=== PATIENT | female | born 1955 | race Caucasian/White ===

== ENCOUNTER 2025-02-10 14:28 | Inpatient (IN) | payer MEDICARE ==
[~2025-02-10] VITALS: Ht 157.5 cm; Wt 59.0 kg
[2025-02-10 15:30] LABS: PLATELET COUNT (AUTO) 305 K/uL (150-450); RED BLOOD CELL COUNT(AUTO) 3.11 MIL/uL (4.0-5.2); RED CELL DISTRIBUTION WIDTH 13.9 % (11.5-15.0); WHITE BLOOD COUNT (AUTO) 7.3 K/uL (4.3-11.0)
[2025-02-10 15:32] LABS: APPEARANCE,URINE CLEAR (CLEAR); BLOOD, URINE 2+ Ery/uL (NEGATIVE); LEUKOCYTE ESTERASE ,URINE 1+ (NEGATIVE); NITRITE, URINE NEGATIVE (NEGATIVE); UGLUCOSE NEGATIVE (NEGATIVE)
[2025-02-10 15:37] LABS: CALCIUM, SERUM 9.3 mg/dL (8.5-10.1); CREATININE 2.3 mg/dL (0.6-1.3); SODIUM SERUM 130 mmol/L (136-145); UREA NITROGEN, BLOOD 23 mg/dL (7-18)
[2025-02-10] MEDS ORDERED: ONDANSETRON HCL/PF 4 MG/2 ML VIAL ONE (15:37)
[2025-02-10] MEDS ORDERED: MORPHINE SULFATE INJ 2 MG/ML DISP.SYRIN ONE (15:37)
[2025-02-10 15:43] LABS: ASPARTATE AMINOTRANSFERASE 11 U/L (15-37); TOTAL PROTEIN, SERUM 7.1 g/dL (6.4-8.2)
[2025-02-10] MEDS: ONDANSETRON HCL/PF - ER 4 MG/2 ML VIAL IV ONE (15:45)
[2025-02-10] MEDS: MORPHINE SULFATE INJ 2 MG/ML DISP.SYRIN IV ONE (15:45)
[2025-02-10 16:00] LABS: ADD URINE CULTURE YES; SQUAMOUS EPITHELIAL CELL,UR 0-2 /HPF (None Seen)
[2025-02-10 16:14] LABS: OCCULT BLOOD STOOL NEGATIVE (NEGATIVE)
[2025-02-10] MEDS ORDERED: CEFTRIAXONE 1GM BAG (ER ONLY) 50 ML IV ONE (16:47)
[2025-02-10] MEDS: IV NS 0.9% 1,000 ML BAG IV ONE (16:56)
[2025-02-10] MEDS: CEFTRIAXONE 1 G in IV D5W 50 ML IV ONE (16:57)
[2025-02-10] MEDS ORDERED: QUET50TA PO (18:49)
[2025-02-10] MEDS ORDERED: MEMA10TA56 PO (18:49)
[2025-02-10] MEDS ORDERED: ACET325T53 PO (18:49)
[2025-02-10] MEDS ORDERED: SIME80TA15 PO (18:49)
[2025-02-10] MEDS ORDERED: DONE10TA44 PO (18:49)
[2025-02-10] MEDS ORDERED: QUET25TA PO (18:49)
[2025-02-10] MEDS ORDERED: CLON0.5T4 PO (18:49)
[2025-02-10] MEDS ORDERED: NALT50TA PO (18:49)
[2025-02-10] MEDS ORDERED: [UNRECOGNIZED DRUG - OTHER] PO (18:49)
[2025-02-10] MEDS ORDERED: SERT100T12 PO (18:49)
[2025-02-10] MEDS ORDERED: MIRT-90 PO (18:49)
[2025-02-10] MEDS ORDERED: LOSA100T31 PO (18:49)
[2025-02-10] MEDS ORDERED: ROSU5TAB PO (18:49)
[2025-02-10] MEDS ORDERED: MAG355OR35 PO (18:49)
[2025-02-10] MEDS ORDERED: GUAI5LIQ10 PO (18:49)
[2025-02-10] MEDS ORDERED: DOCU100C36 PO (18:49)
[2025-02-10] MEDS ORDERED: ONDANSETRON HCL/PF 4 MG/2 ML VIAL IVP PRN (19:30)
[2025-02-10] MEDS ORDERED: DOSING PER PHARMACY-ZOSYN IV 1 EA EA XX PRN (19:30)
[2025-02-10] MEDS ORDERED: HEPARIN INFUSION/D5W 500 ML IV PRN ×2 (19:30→23:30)
[2025-02-10] MEDS: IV NS 0.9% 1,000 ML IV PRN (20:41)
[2025-02-10] MEDS: PIPERACI/TAZO 3.375GM/D5W 50ML PB IV ONE (21:39)
[2025-02-10] MEDS: ZOSYN IVPB 3.375 G in IV D5W 50ml IV ONE (21:42)
[2025-02-10] MEDS: ACETAMINOPHEN 325 MG TABLET PO PRN (22:37)
[2025-02-10 23:02] LABS: INR 1.03 (0.91-1.10)
[2025-02-11] MEDS: HEPARIN SODIUM, PORCINE 5000 UNITS/1 ML VIAL IV ONE (00:09)
[2025-02-11] MEDS ORDERED: OLANZAPINE 10 MG VIAL IM ONE (00:30)
[2025-02-11] MEDS ORDERED: HEPARIN INFUSION/D5W 500 ML IV ONE (01:07)
[2025-02-11] MEDS: HEPARIN INFUSION/D5W 500 ML IV PRN (01:31)
[2025-02-11 07:52] LABS: PLATELET COUNT (AUTO) 327 K/uL (150-450); RED BLOOD CELL COUNT(AUTO) 3.25 MIL/uL (4.0-5.2); RED CELL DISTRIBUTION WIDTH 13.6 % (11.5-15.0); WHITE BLOOD COUNT (AUTO) 6.1 K/uL (4.3-11.0)
[2025-02-11 08:00] VITALS: BP 123/64; TEMP 98.2; O2SAT 97
[2025-02-11 08:08] LABS: CALCIUM, SERUM 8.9 mg/dL (8.5-10.1); CREATININE 2.2 mg/dL (0.6-1.3); PHOSPHORUS 4.4 mg/dL (2.5-4.9); SODIUM SERUM 135.0 mmol/L (136-145); UREA NITROGEN, BLOOD 20.0 mg/dL (7-18)
[2025-02-11] MEDS: MEMANTINE HCL 5 MG TABLET PO SCH (09:55)
[2025-02-11] MEDS: DONEPEZIL 5 MG TABLET PO SCH (09:55)
[2025-02-11] MEDS: LOSARTAN POTASSIUM 50 MG TABLET PO SCH (09:56)
[2025-02-11] MEDS: QUETIAPINE FUMARATE 25 MG TABLET PO SCH ×2 (09:57→13:28)
[2025-02-11] MEDS: SERTRALINE HCL 25 MG TABLET PO SCH (09:58)
[2025-02-11] MEDS ORDERED: SIMETHICONE 80 MG TAB.CHEW PO PRN (10:00)
[2025-02-11] MEDS ORDERED: DOCUSATE SODIUM 100 MG CAPSULE PO PRN (10:00)
[2025-02-11] MEDS: MORPHINE SULFATE INJ 4 MG/ML DISP.SYRIN IV PRN (10:51)
[2025-02-11 12:00] VITALS: BP 109/65; TEMP 97.1; O2SAT 97
[2025-02-11] MEDS: PIPERACILLIN /TAZOBACTAM 2.25 G in IV D5W 50 ML IV SCH (13:28)
[2025-02-11 15:47] LABS: CREATININE, URINE 30.2 MG/DL (30.0-125.0); URINE SODIUM, RANDOM 61.0 mmol/l (40-220); URINE TOTAL PROTEIN 11.7 mg/dL (0-11.9)
[2025-02-11 16:00] VITALS: BP 135/71; TEMP 97.1; O2SAT 98
[2025-02-11] MEDS: HYDROCODONE/APAP 5/325MG TABLET PO PRN (18:06)
[2025-02-11 20:00] VITALS: BP 103/60; TEMP 98.2; O2SAT 92
[2025-02-11] MEDS: CEFTRIAXONE 1GM BAG (ER ONLY) 50 ML IV ONE (21:05)
[2025-02-11] MEDS: CEFTRIAXONE 1 G in IV D5W 50 ML IV SCH (21:17)
[2025-02-11] MEDS: ATORVASTATIN 10 MG TABLET PO SCH (21:17)
[2025-02-11] MEDS: MIRTAZAPINE 15 MG TABLET PO SCH (21:17)
[2025-02-12] VITALS: BP 130/93; TEMP 98.2; O2SAT 99
[2025-02-12] MEDS ORDERED: OLANZAPINE 10 MG VIAL IM ONE ×2 (00:30)
[2025-02-12] MEDS: OLANZAPINE 10 MG VIAL IM ONE (00:43)
[2025-02-12 04:00] VITALS: BP 124/72; TEMP 98.1; O2SAT 98
[2025-02-12 08:00] VITALS: BP 120/77; TEMP 97.8; O2SAT 100
[2025-02-12 08:36] LABS: PLATELET COUNT (AUTO) 345 K/uL (150-450); RED BLOOD CELL COUNT(AUTO) 3.27 MIL/uL (4.0-5.2); RED CELL DISTRIBUTION WIDTH 13.9 % (11.5-15.0); WHITE BLOOD COUNT (AUTO) 6.0 K/uL (4.3-11.0)
[2025-02-12 09:03] LABS: ASPARTATE AMINOTRANSFERASE 12.0 U/L (15-37); CALCIUM, SERUM 8.8 mg/dL (8.5-10.1); CREATININE 2.0 mg/dL (0.6-1.3); PHOSPHORUS 3.7 mg/dL (2.5-4.9); SODIUM SERUM 135.0 mmol/L (136-145); TOTAL PROTEIN, SERUM 6.8 g/dL (6.4-8.2); UREA NITROGEN, BLOOD 15.0 mg/dL (7-18)
[2025-02-12 09:05] LABS: CREATINE KINASE, TOTAL 76.0 U/L (26-192)
[2025-02-12] MEDS: HEPARIN SODIUM, PORCINE 5000 UNITS/1 ML VIAL SQ SCH (13:08)
[2025-02-12] MEDS: APIXABAN 5 MG TABLET PO SCH (13:30)
[2025-02-12] MEDS: CEPHALEXIN MONOHYDRATE 500 MG CAPSULE PO SCH (14:49)
[2025-02-12 16:00] VITALS: BP 123/85; TEMP 98.2; O2SAT 94
[2025-02-12] MEDS ORDERED: CEFTRIAXONE 1 G in IV D5W 50 ML IV SCH (21:00)
[2025-02-13] VITALS: BP 125/80; TEMP 98; O2SAT 95
[2025-02-13 07:12] LABS: PTH, INTACT 34 pg/mL (15-65)
[2025-02-13 08:00] VITALS: BP 139/70; TEMP 98.7; O2SAT 97
[2025-02-13 08:30] VITALS: TEMP 98
[2025-02-13 09:40] LABS: PLATELET COUNT (AUTO) 323 K/uL (150-450); RED BLOOD CELL COUNT(AUTO) 3.32 MIL/uL (4.0-5.2); RED CELL DISTRIBUTION WIDTH 13.8 % (11.5-15.0); WHITE BLOOD COUNT (AUTO) 6.8 K/uL (4.3-11.0)
[2025-02-13 10:13] LABS: CALCIUM, SERUM 9.2 mg/dL (8.5-10.1); CREATININE 1.9 mg/dL (0.6-1.3); PHOSPHORUS 3.7 mg/dL (2.5-4.9); SODIUM SERUM 134.0 mmol/L (136-145); UREA NITROGEN, BLOOD 12.0 mg/dL (7-18)
[2025-02-13] MEDS ORDERED: Hydrocodone/Apap 5/325MG PO (10:56)
[2025-02-13] MEDS ORDERED: APIX5TAB PO (10:56)
[2025-02-13] MEDS ORDERED: HYDR-4209 PO (13:23)
[2025-02-19] MEDS ORDERED: APIXABAN 5 MG TABLET PO SCH (09:00)
== END 2025-02-13 12:00 | DRG 175 ==
LOC: ER 14:33 → TELE1 17:48 → MEDSG1 02-12 10:03
PROVIDERS: ADMIT Nurse Practitioner Acute Care; ATTEND Nurse Practitioner Family
DX: I26.99 Other pulmonary embolism without acute cor pulmonale (principal); N17.0 Acute kidney failure with tubular necrosis; D68.59 Other primary thrombophilia; E44.1 Mild protein-calorie malnutrition; E87.1 Hypo-osmolality and hyponatremia; F03.918 Unspecified dementia, unspecified severity, with other behavioral disturbance; N13.6 Pyonephrosis; D64.9 Anemia, unspecified; E66.9 Obesity, unspecified; E88.09 Other disorders of plasma-protein metabolism, not elsewhere classified; G89.29 Other chronic pain; N18.9 Chronic kidney disease, unspecified; Z87.891 Personal history of nicotine dependence; Z88.2 Allergy status to sulfonamides; R59.0 Localized enlarged lymph nodes; Z68.23 Body mass index [BMI] 23.0-23.9, adult; E83.9 Disorder of mineral metabolism, unspecified; T50.8X5A Adverse effect of diagnostic agents, initial encounter; Y92.89 Other specified places as the place of occurrence of the external cause; F29 Unspecified psychosis not due to a substance or known physiological condition; F39 Unspecified mood [affective] disorder; F10.21 Alcohol dependence, in remission; F31.9 Bipolar disorder, unspecified; N28.89 Other specified disorders of kidney and ureter; R91.8 Other nonspecific abnormal finding of lung field
CPT/HCPCS: 36415; 70450-TC; 76770-TC; 80048-TC; 80053-TC; 80076-TC; 81001; 82272-TC; 82550-TC; 82570-TC; 83605-TC; 83690-TC; 83735-TC; 83970; 84100-TC; 84155; 84165; 84300-TC; 84484-TC; 85025-TC; 85610-TC; 85730-TC; 87040-TC; 87081-TC; 87086-TC; 93970-TC; A4223; G0378; J0696; J1644; J2270; J2405; J2543; J3490; J7060